=== PATIENT | female | born 1935 | race Caucasian/White ===

== ENCOUNTER → 2016-06-21 | Outpatient (REF) | payer MEDICARE ==
[~2016-06-21] MED LIST: ASPI1TAB PO; BACITAB3 PO; BENA20TA PO; BENA20TA2 PO; CALCTAB75 PO; CEFT2ADD IV; CEPA5.4L2 MT; CINN500C9 PO; CO Q1CAP PO; CYMB1CAP5 PO; D 50CAP PO; DEXT50IN6 IV; DONETAB6 PO; DULO1CAP2 PO; GABA-279 PO; GLUC1KIT SC; GLUC4CHW PO; HEPA100SY IV; HYDR10TAB PO; IMOD2TAB16 PO; INSUHUMDS SC; K-TA10TA2 PO; LEVO100T5 PO; LOMO2.5T PO; LOPR1TAB6 PO; LOVE1INJ2 SC; MAGN500T5 PO; METF-414 PO; METF500T PO; PRESCAP4 PO; PROBCAP4 PO; PROP1TAB29 PO; SALI0.9I2 IV; TRAM50TA2 PO; TUMERIC PO; TYLE325T5 PO; VITA1CAP7 PO; VITA250L PO; VITA400C29 PO; VITA500T53 PO; VITMTA PO; VOLT1GEL24 TD; ZOFR4SOL PO; occuvite OR
[2016-06-21 17:56] LABS: CREATININE FOR GFR 0.96 MG/DL (0.55-1.02); GLOMERULAR FILTRATION RATE 59.1 (>32)
== END | disposition home or self-care (01) ==
LOC: M LAB REF 16:12
PROVIDERS: ATTEND Surgery
DX: E11.621 Type 2 diabetes mellitus with foot ulcer (principal)
CPT/HCPCS: 15275; 36415; 82565; 83036; 84520; 85652; 86140; Q4131

== ENCOUNTER → 2016-06-27 | Outpatient (CLI) | payer MEDICARE ==
[~2016-06-27] MED LIST changes: +ISOVUE-370 76% 100ML VIAL (Q9967) As Ordered ONE
--- NOTE | 2016-06-27 16:15 | REP ---
CT LEFT FOOT WITH IV CONTRAST: CT left foot is performed following the intravenous administration of 100 mL of Isovue-[id number]. Axial images are obtained with sagittal and coronal reconstruction images. There is an ulcer on the skin at the plantar lateral aspect of the mid-foot. There is focal cellulitis at that location. I do not see a definite significant abscess collection. The underlying cuboid bone demonstrates cortical destruction and deeper ill-defined destruction of the inferior portion of the bone consistent with osteomyelitis. The adjacent lateral cuneiform bone demonstrates ill-defined cortex with erosive changes with possible osteomyelitis at the lateral margin of that bone. There is mild inferior calcaneal spurring. There is dorsal lateral dislocation of the metatarsal bones with respect to the tarsal bones as seen on prior plain films of 04/19/2015. Diffuse narrowing and sclerosis is seen at the intertarsal joints and tarsal/metatarsal joints. There appears to be an old healed fracture of the second metatarsal. There is widening of the lateral aspect of the ankle mortise. This likely indicates ligamentous laxity at the ankle. There is medial subluxation of the medial cuneiform bone with respect to the navicular bone. IMPRESSION: Soft-tissue ulcer, plantar aspect of the foot laterally with underlying osteomyelitis of the inferior portion of the cuboid bone. There may also be some degree of osteomyelitis of the adjacent lateral cuneiform bone. Signed by Rene Crandall MD 06/27/2016 07:41 P
== END ==
LOC: M RAD 13:28
PROVIDERS: ATTEND Surgery
DX: E11.621 Type 2 diabetes mellitus with foot ulcer (principal); L97.509 Non-pressure chronic ulcer of other part of unspecified foot with unspecified severity; M86.9 Osteomyelitis, unspecified
CPT/HCPCS: 73701; Q9967

== ENCOUNTER → 2016-07-05 | Outpatient (REF) | payer MEDICARE ==
[~2016-07-05] MED LIST changes: -ISOVUE-370 76% 100ML VIAL (Q9967) As Ordered ONE
== END ==
LOC: M LAB REF 16:19
PROVIDERS: ATTEND Surgery
DX: E11.621 Type 2 diabetes mellitus with foot ulcer (principal)
CPT/HCPCS: 15275; 87070; 87077; 87186; Q4131

== ENCOUNTER → 2016-07-25 | Outpatient (REF) | payer MEDICARE | LOC: M LAB REF 13:12 | PROVIDERS: ATTEND Surgery | DX: E11.621 Type 2 diabetes mellitus with foot ulcer (principal); M86.672 Other chronic osteomyelitis, left ankle and foot; L97.521 Non-pressure chronic ulcer of other part of left foot limited to breakdown of skin; E11.610 Type 2 diabetes mellitus with diabetic neuropathic arthropathy; I87.2 Venous insufficiency (chronic) (peripheral) ==

== ENCOUNTER → 2016-08-09 | Outpatient (REF) | payer MEDICARE ==
[2016-08-09 12:43] LABS: BASO % 0.5 % (0.0-1.0); EOS # 0.2 K/mm3 (0.0-0.50); EOS % 2.4 % (0.0-3.0); LARGE UNSTAINED CELL # 0.3 K/mm3 (0.0-0.4); LARGE UNSTAINED CELL % 3.4 % (0.0-4.0); LYMPH # 3.2 K/mm3 (1.5-4.5); LYMPH % 36.7 % (24.0-44.0); MEAN CORPUSCULAR HEMOGLOBIN 30.8 pg (27.0-33.0); MEAN CORPUSCULAR HGB CONC 32.4 g/dl (32.0-36.5); MEAN CORPUSCULAR VOLUME 95.1 fl (80.0-96.0); MONO # 0.7 K/mm3 (0.0-0.8); MONO % 8.1 % (0.0-5.0); NEUTROPHILS # 3.9 K/mm3 (1.8-7.7); NEUTROPHILS % 48.9 % (36.0-66.0); PLATELET COUNT, AUTOMATED 183 k/mm3 (150-450); RED CELL DISTRIBUTION WIDTH 13.1 % (11.5-14.5)
[2016-08-09 13:56] LABS: ERYTHROCYTE SEDIMENTATION RATE 20 mm/hr (0-30)
== END ==
LOC: M SFHCPLAZ 12:03
PROVIDERS: ATTEND Internal Medicine Infectious Disease
DX: L97.424 Non-pressure chronic ulcer of left heel and midfoot with necrosis of bone (principal); E11.621 Type 2 diabetes mellitus with foot ulcer

== ENCOUNTER → 2016-08-13 | Outpatient (CLI) | payer MEDICARE ==
--- NOTE | 2016-08-13 13:39 | REP ---
TRIPLE PHASE WHITE BLOOD CELL SCAN, ANKLES AND FEET: Following the intravenous administration of 19.7 millicuries technetium 99m labeled white blood cells, immediate flow images are obtained of the ankles and feet in the anterior and posterior projections. There is a slightly greater degree of perfusion in the left foot compared to the right foot. Immediate blood pool and 2.5 hour delayed images of the ankles and feet are performed in the anterior, posterior, both lateral and plantar projections. There is mild diffuse increased blood pooling in the soft tissues of the left foot. Delayed images show no osseous uptake and no evidence for osteomyelitis. IMPRESSION: Mild diffuse increased soft tissue uptake of the left foot may indicate cellulitis. No scintigraphic evidence of osteomyelitis. Signed by Rene Crandall MD 08/13/2016 04:14 P
== END ==
LOC: M RAD 06:54
PROVIDERS: ATTEND Podiatrist Foot Surgery
DX: L97.529 Non-pressure chronic ulcer of other part of left foot with unspecified severity (principal)

== ENCOUNTER → 2016-10-10 | Outpatient (REF) ==
[2016-10-10 11:14] LABS: MEAN CORPUSCULAR HEMOGLOBIN 32.1 pg (27.0-33.0); MEAN CORPUSCULAR HGB CONC 32.7 g/dl (32.0-36.5); MEAN CORPUSCULAR VOLUME 98.4 fl (80.0-96.0); RED CELL DISTRIBUTION WIDTH 12.7 % (11.5-14.5); WHITE BLOOD COUNT 6.3 K/mm3 (4.0-10.0)
[2016-10-10 12:12] LABS: CALCIUM LEVEL 8.4 MG/DL (8.8-10.2); CREATININE FOR GFR 0.97 MG/DL (0.55-1.02); GLOMERULAR FILTRATION RATE 58.4 (>32); POTASSIUM SERUM 3.9 MEQ/L (3.5-5.1)
== END ==
PROVIDERS: ATTEND Internal Medicine
DX: L03.116 Cellulitis of left lower limb (principal)

== ENCOUNTER → 2016-10-16 | Outpatient (REF) ==
[2016-10-16 10:06] LABS: ANION GAP 8 MEQ/L (8-16); BLOOD UREA NITROGEN 16 MG/DL (7-18); CALCIUM LEVEL 8.5 MG/DL (8.8-10.2); CARBON DIOXIDE LEVEL 30 MEQ/L (21-32); CHLORIDE LEVEL 103 MEQ/L (98-107); CREATININE FOR GFR 0.82 MG/DL (0.55-1.02); GLOMERULAR FILTRATION RATE > 60.0 (>32); GLUCOSE, FASTING 95 MG/DL (83-110); POTASSIUM SERUM 4.3 MEQ/L (3.5-5.1); SODIUM LEVEL 141 MEQ/L (136-145)
[2016-10-16 10:46] LABS: MEAN CORPUSCULAR HEMOGLOBIN 31.5 pg (27.0-33.0); MEAN CORPUSCULAR HGB CONC 33.3 g/dl (32.0-36.5); MEAN CORPUSCULAR VOLUME 94.5 fl (80.0-96.0); RED CELL DISTRIBUTION WIDTH 12.7 % (11.5-14.5); WHITE BLOOD COUNT 7.2 K/mm3 (4.0-10.0)
== END ==
PROVIDERS: ATTEND Internal Medicine
DX: M86.9 Osteomyelitis, unspecified (principal)

== ENCOUNTER → 2016-10-23 | Outpatient (REF) ==
[2016-10-23 10:54] LABS: MEAN CORPUSCULAR HEMOGLOBIN 31.4 pg (27.0-33.0); MEAN CORPUSCULAR HGB CONC 33.1 g/dl (32.0-36.5); RED CELL DISTRIBUTION WIDTH 12.7 % (11.5-14.5); WHITE BLOOD COUNT 7.2 K/mm3 (4.0-10.0)
[2016-10-23 11:09] LABS: ANION GAP 6 MEQ/L (8-16); BLOOD UREA NITROGEN 14 MG/DL (7-18); CALCIUM LEVEL 8.6 MG/DL (8.8-10.2); CARBON DIOXIDE LEVEL 31 MEQ/L (21-32); CHLORIDE LEVEL 102 MEQ/L (98-107); GLOMERULAR FILTRATION RATE > 60.0 (>32); GLUCOSE, FASTING 108 MG/DL (83-110); SODIUM LEVEL 139 MEQ/L (136-145)
== END ==
PROVIDERS: ATTEND Internal Medicine
DX: Z00.00 Encounter for general adult medical examination without abnormal findings (principal)

== ENCOUNTER → 2016-10-30 | Outpatient (REF) ==
[2016-10-30 11:29] LABS: MEAN CORPUSCULAR HEMOGLOBIN 31.7 pg (27.0-33.0); MEAN CORPUSCULAR HGB CONC 33.1 g/dl (32.0-36.5); MEAN CORPUSCULAR VOLUME 95.7 fl (80.0-96.0); RED CELL DISTRIBUTION WIDTH 12.5 % (11.5-14.5); WHITE BLOOD COUNT 7.9 K/mm3 (4.0-10.0)
[2016-10-30 12:04] LABS: ALBUMIN 3.6 GM/DL (3.2-5.2); ALBUMIN/GLOBULIN RATIO 0.97 (1.00-1.93); ALKALINE PHOSPHATASE 92 U/L (45-117); ALT/SGPT 29 U/L (12-78); ANION GAP 7 MEQ/L (8-16); AST/SGOT 26 U/L (15-37); BILIRUBIN,TOTAL 0.6 MG/DL (0.2-1.0); BLOOD UREA NITROGEN 17 MG/DL (7-18); CALCIUM LEVEL 9.1 MG/DL (8.8-10.2); CARBON DIOXIDE LEVEL 31 MEQ/L (21-32); CHLORIDE LEVEL 102 MEQ/L (98-107); GLOMERULAR FILTRATION RATE > 60.0 (>32); GLUCOSE, FASTING 157 MG/DL (83-110); POTASSIUM SERUM 4.1 MEQ/L (3.5-5.1); SODIUM LEVEL 140 MEQ/L (136-145); TOTAL PROTEIN 7.3 GM/DL (6.4-8.2)
== END ==
PROVIDERS: ATTEND Internal Medicine
DX: M86.172 Other acute osteomyelitis, left ankle and foot (principal)

== ENCOUNTER → 2016-11-06 | Outpatient (REF) ==
[2016-11-06 10:37] LABS: MEAN CORPUSCULAR HEMOGLOBIN 32.2 pg (27.0-33.0); MEAN CORPUSCULAR HGB CONC 33.9 g/dl (32.0-36.5); RED CELL DISTRIBUTION WIDTH 12.7 % (11.5-14.5); WHITE BLOOD COUNT 6.3 K/mm3 (4.0-10.0)
[2016-11-06 11:08] LABS: ANION GAP 11 MEQ/L (8-16); BLOOD UREA NITROGEN 16 MG/DL (7-18); CALCIUM LEVEL 9.1 MG/DL (8.8-10.2); CARBON DIOXIDE LEVEL 29 MEQ/L (21-32); CHLORIDE LEVEL 101 MEQ/L (98-107); CHOLESTEROL LEVEL 213 MG/DL (<200); GLOMERULAR FILTRATION RATE > 60.0 (>32); GLUCOSE, FASTING 185 MG/DL (83-110); POTASSIUM SERUM 3.9 MEQ/L (3.5-5.1); SODIUM LEVEL 141 MEQ/L (136-145); TRIGLYCERIDES LEVEL 316 MG/DL (<150)
== END ==
PROVIDERS: ATTEND Internal Medicine
DX: Z00.00 Encounter for general adult medical examination without abnormal findings (principal)

== ENCOUNTER → 2016-12-05 | Outpatient (REF) ==
[~2016-12-05] MED LIST changes: +BACITAB PO; -BACITAB3 PO; -BENA20TA2 PO; +BENA20TA8 PO; +CO Q100C PO; -CO Q1CAP PO; -METF500T PO; +METF500T13 PO; +VITA-110 PO; -VITA400C29 PO; +VOLT1GEL15 TD; -VOLT1GEL24 TD
[2016-12-05 13:36] LABS: MEAN CORPUSCULAR HEMOGLOBIN 32.1 pg (27.0-33.0); MEAN CORPUSCULAR HGB CONC 34.4 g/dl (32.0-36.5); MEAN CORPUSCULAR VOLUME 93.4 fl (80.0-96.0); WHITE BLOOD COUNT 8.3 K/mm3 (4.0-10.0)
[2016-12-05 14:00] LABS: ANION GAP 7 MEQ/L (8-16); BLOOD UREA NITROGEN 16 MG/DL (7-18); CALCIUM LEVEL 9.4 MG/DL (8.8-10.2); CARBON DIOXIDE LEVEL 29 MEQ/L (21-32); CHLORIDE LEVEL 103 MEQ/L (98-107); GLOMERULAR FILTRATION RATE > 60.0 (>32); GLUCOSE, FASTING 91 MG/DL (83-110); POTASSIUM SERUM 4.1 MEQ/L (3.5-5.1); SODIUM LEVEL 139 MEQ/L (136-145)
== END ==
PROVIDERS: ATTEND Internal Medicine
DX: Z00.00 Encounter for general adult medical examination without abnormal findings (principal)